=== PATIENT | male | born 1935 | race Caucasian/White ===

== ENCOUNTER 2018-06-02 13:21 | Emergency (ER) | payer OTHER ==
[~2018-06-02] VITALS: Ht 177.8 cm; Wt 72.6 kg
[2018-06-02 16:23] VITALS: BP 139/67
== END 2018-06-02 16:17 | disposition home or self-care (01) ==
LOC: ER 13:21
DX: M54.5 Low back pain (principal); W01.0XXA Fall on same level from slipping, tripping and stumbling without subsequent striking against object, initial encounter; Y93.89 Activity, other specified; Y92.89 Other specified places as the place of occurrence of the external cause; Y99.8 Other external cause status

== ENCOUNTER → 2018-06-18 | Outpatient (CLI) | payer OTHER ==
[2018-06-18 14:57] LABS: BASOPHILS 0.3 % (0.0-2.0); HEMOGLOBIN 14.2 gm/dL (14.0-18.0); LYMPHOCYTES 24.4 % (24.0-44.0); MCH 28.9 pg (26.0-34.0); MCV 87.6 fL (80.0-100.0); MONOCYTES 7.1 % (1.0-8.0); PLATELET COUNT 274 thou/uL (150-400); POLYS 63.2 % (36.0-66.0); RBC 4.91 mil/uL (4.50-6.00); RDW 15.4 % (10.5-14.5); WBC 6.4 thou/uL (4.0-11.0)
[2018-06-18 14:58] LABS: URINE BILIRUBIN NEGATIVE (Negative); URINE BLOOD NEGATIVE (Negative); URINE CLARITY CLEAR; URINE COLOR YELLOW; URINE GLUCOSE-RANDOM* 3+ (Negative); URINE KETONES TRACE (Negative); URINE LEUKOCYTES-REFLEX NEGATIVE (Negative); URINE NITRITE-REFLEX NEGATIVE (Negative); URINE PROTEIN (DIPSTICK) NEGATIVE (Negative); URINE SPECIFIC GRAVITY >= 1.030 (1.005-1.035); URINE UROBILINOGEN 0.2 E.U./dl (0.2-1.0)
[2018-06-18 15:07] LABS: ALBUMIN 3.7 g/dL (3.4-5.0); ANION GAP 11 mmol/L (7-16); BUN 20 mg/dL (7-18); CALCIUM 9.3 mg/dL (8.5-10.1); CHLORIDE 98 mmol/L (98-107); CHOLESTEROL 120 mg/dL (<200); CO2 28 mmol/L (21-32); CREATININE 1.1 mg/dL (0.7-1.3); GLUCOSE 271 mg/dL (74-106); HDL CHOLESTEROL 49 mg/dL (>40); LDL CHOLESTEROL 37 mg/dL (<100); MAGNESIUM 1.3 mg/dL (1.8-2.4); POTASSIUM 4.9 mmol/L (3.5-5.1); SGOT 19 U/L (15-37); SGPT 28 U/L (30-65); SODIUM 137 mmol/L (136-145); TC:HDL 2.4 Ratio (Not establshd); TOTAL BILIRUBIN 0.3 mg/dL (<0.1-1.0); TOTAL PROTEIN 7.1 g/dL (6.4-8.2); TRIGLYCERIDE 172 mg/dL (<150); VLDL 34 mg/dL (<40)
[2018-06-18 15:32] LABS: TSH 1.216 uIU/mL (0.358-3.740)
[2018-06-18 23:07] LABS: CREATININE (ALB/CR) 78.5 mg/dL (Not Estab.); MICROALB:CREAT 10.2 (0.0-30.0)
[2018-06-19 03:07] LABS: GLYCOHEMOGLOBIN (HGB A1C) 8.8 % (4.8-5.6)
== END ==
LOC: SEN 11:54
PROVIDERS: Nurse Practitioner Family
DX: I10 Essential (primary) hypertension (principal); E78.5 Hyperlipidemia, unspecified; E11.9 Type 2 diabetes mellitus without complications

== ENCOUNTER → 2018-11-19 | Outpatient (CLI) | payer OTHER ==
[~2018-11-19] VITALS: Ht 172.7 cm; Wt 80.7 kg
[~2018-11-19] MED LIST: ARICEPT 5 MG TAB5 MG PO; COQ-10100 MG PO; CRESTOR10 MG PO; DICLOFENAC SODI75 MG PO; LEVEMIR FL100 UNIT/2 SUBQ; MEMANTINE PO; METFORMIN HYDRO25 GM MC; NEURONTIN 300300 M1 PO; NORCO 10-325 T1 EACH PO; PEPCID20 MG PO; SERTRALINE HCL50 MG PO; TAMSULOSIN PO; TRAMADOL 50 MG50 MG PO; VICTOZA0.6 MG/0.1 SUBQ
[2018-11-19 11:46] VITALS: BP 147/68
--- NOTE | 2018-11-19 12:13 | NUR ---
Pain Clinic Assessment: 1. History of Osteoarthritis: History of Rheumatoid Arthritis: 2. Height: 5 ft. 8 in. 172.7 cm. Weight: 177.8 lb. oz. 80.650 kg. Patient's BMI: 27.0 3. Vital Signs: BP: 147/68 Pulse: 64 Resp: 20 Temp: 02 Sat: 98 ECG Mon: 4. Pain Intensity: 6 5. Fall Risk: Dizziness: N Needs help standing or walking: Y Fallen in the last 3 months: N Fall risk comments: 6. Patient on Blood Thinner: None 7. History of Hypertension: Y 8. Opioid Therapy greater than 6 weeks: Y Opiate Contract Signed: 9. Risk Assessment Tool Provided: 10. Functional Assessment Tool: 11. Recreational Drug Use: Never Drug Type: Tobacco Use: Never Smoker Tobacco Type: Amount or Packs/day: How Many Years: Alcohol Use: No Frequency: Quant:
--- NOTE | 2018-11-26 17:05 | HPC ---
[facility] [address] [place] [address] PAIN MANAGEMENT CONSULTATION Name: RED RANDHAWA Room #: REG [facility].#: [id number] Admission: 11/19/18 ������������������ Attend Phys: Caden Ignacio MD Discharge: ������������������ Date of : 36 Report #: [id number] THIS REPORT FOR: //name// CC: Beverly Gee [facility] physician/PCP Caden Ignacio DATE OF SERVICE: 11/19/2018 CHIEF COMPLAINT: Chronic right hip pain. FOLLOWUP HISTORY: The patient is an 83-year-old gentleman who injured his back while falling on icy night, hit his tailbone and the back of the trailer hitch. Continues to have pain, which today he describes as dull. Rates it as a 6/10. It increases with standing, walking, sitting, getting up from a sitting position, getting in and out of bed, moving from a chair to walking activity. He has found hydrocodone and tramadol, both helpful. He would like to continue with these medications. He does not feel that they are causing his sensorium to cloud. ALLERGIES: SULFA. CURRENT MEDICATIONS: PreserVision, CoQ10 50 mg, joint health tablet, chondroitin/glucosamine, calcium D3 400 units, Pepcid 20 mg b.i.d., vitamin B complex, Centrum Silver Men's, insulin Levemir 15 units subcutaneous at bedtime, Crestor 10 mg, metformin 100 mg, Glucophage, Namenda XR 21 mg, Aricept 5 mg, total of 10 mg daily, lisinopril 20 mg, Voltaren gel topical q.i.d. to the upper extremity, Zoloft 50 mg, Norvasc 5 mg, Neurontin 300 mg t.i.d., tramadol 37.5/325, hydrocodone 7.5/325, Victoza subcutaneous daily. PAIN CLINIC ASSESSMENT/PQRS: 1. The patient is not being treated for rheumatoid arthritis or osteoarthritis. He has had fusion in his low back area. 2. Height 5 feet 8 inches, weight 177 pounds, BMI is 27.0. 3. Vital signs: Blood pressure 147/68, pulse 64, respiratory rate 20, room air saturation is 98%. 4. Pain intensity 6/10. 5. Fall history: The patient has not fallen in the last 3 months. 6. Blood thinner. The patient is not on a blood thinning medication. 7. Hypertension. The patient is being treated for hypertension. 8. Opioids greater than 6 weeks. The patient receives medications through the pain clinic. 9. Risk assessment tool, low for opioid use. 10. Functional assessment tool. 11. Recreational drug use. The patient denies. 12. Tobacco: The patient never smoked. [address] [address] PAIN MANAGEMENT CONSULTATION Name: SYDNEERED Room #: REG CLNasreen Aden#: [id number] Admission: 11/19/18 ������������������ Attend Phys: Caden Ignacio MD Discharge: ������������������ Date of : 36 Report #: [id number] 13. Alcohol: The patient denies use of alcoholic beverages. PHYSICAL EXAMINATION: GENERAL: The patient is a well-developed, well-nourished white male. Appears his stated age. He accompanied by his . He is alert and oriented x 3. Affect is appropriate. Speech is fluent. corroborates his responses. HEENT: Normocephalic, atraumatic. Extraocular eye muscles intact. Sclerae nonicteric. Mucous membranes are moist. The patient has bilateral hearing aids in place. HEART: Regular rate. ABDOMEN: Nontender. Bowel sounds present. MUSCULOSKELETAL: The patient has pain and discomfort in the left hip area. Has pain in the posterior superior iliac spine area. He has pain that radiates down in the L4 dermatomal distribution. IMPRESSION: 1. Lumbar radiculopathy history at L4-L5. 2. Myofascial pain, right paraspinous muscles as well as the left paraspinous muscles. 3. History of coronary artery disease. 4. Dementia. 5. Hyperlipidemia. 6. Hypertension. 7. Type 2 diabetes. RECOMMENDATIONS: We discussed treatment options with the patient and his . At this point, they feel that the hydrocodone is helpful. He is able to gain benefit from this. He does walk with use of a walker. His also uses a rolling walker. He feels that these medications enable him to engage in activities he would not be able to without their use. He does not have any significant problems with constipation. He has taken the medications to help control the pain. He is not having any changes or alteration in his sensorium. We will continue with the patient's medications for pain control with hydrocodone 10/325 one p.o. b.i.d. He will also try tramadol, which he takes episodically as well to help curve his pain and discomfort. A script for these medications have been released. The patient will call us if he has any problems. His will call us if there are any concerns that she has. Questions were sought and answered. They will follow up as needed. ��������������������������������������������� <ELECTRONICALLY SIGNED> ���������������������������������������� By: Caden Ignacio MD ��������������������������������������������� 11/26/18 1705 [id number] [id number] Caden Ignacio MD /PMT
== END ==
LOC: PAIN 06:54
DX: M54.16 Radiculopathy, lumbar region (principal); E11.9 Type 2 diabetes mellitus without complications; I10 Essential (primary) hypertension; E78.5 Hyperlipidemia, unspecified; F03.90 Unspecified dementia, unspecified severity, without behavioral disturbance, psychotic disturbance, mood disturbance, and anxiety; I25.10 Atherosclerotic heart disease of native coronary artery without angina pectoris; M79.18 Myalgia, other site; Z79.4 Long term (current) use of insulin; Z79.899 Other long term (current) drug therapy; Z88.2 Allergy status to sulfonamides

== ENCOUNTER → 2018-12-31 | Outpatient (CLI) | payer OTHER ==
[~2018-12-31] VITALS: Ht 172.7 cm; Wt 81.2 kg
[~2018-12-31] MED LIST changes: +CELEBREX 200 M200 MG PO; +HYDROCODON-ACE1 EAC7 PO; +PRESERVISION A1 EAC2 PO; +VOLTAREN GEL 1100 G2 TOP
--- NOTE | ~2018-12-31 | HPC ---
[facility] [address] [email or web address] [address] PAIN MANAGEMENT CONSULTATION Name: RED RANDHAWA Room #: REG [facility].#: [id number] Admission: 12/31/18 ������������������ Attend Phys: Caden Ignacio MD Discharge: ������������������ Date of : 36 Report #: [id number] THIS REPORT FOR: //name// CC: Beverly Gee [facility] physician/PCP Caden Ignacio DATE OF SERVICE: 12/31/2018 CHIEF COMPLAINT: Pain in the low back area and pain in the right thumb. HISTORY: The patient has been having pain and discomfort in his hand for some time. He injured it many years ago. It has become more problematic at this point. Also, has pain and discomfort in the low back area after falling on ice and hitting his tailbone on the back of a trailer hitch and that pain continues to be problematic and he rates it as an 8/10 today collective with his thumb pain. He feels that the thumb pain is more problematic today. He feels that his opioid medications of tramadol and hydrocodone are beneficial. He feels that he is taking the medications as prescribed with the assistance of his . ALLERGIES: SULFA. CURRENT MEDICATIONS: PreserVision, CoQ10 50 mg, joint health tablet, chondroitin/glucosamine, calcium D3 400 units, Pepcid 20 mg b.i.d., vitamin B complex, Centrum Silver Men's, insulin Levemir 15 units subcutaneous at bedtime, Crestor 10 mg, metformin 100 mg, Glucophage, Namenda XR 21 mg, Aricept 5 mg total of 10 mg daily, lisinopril 20 mg, Voltaren gel topical q.i.d. to the upper extremity and to his right thumb, Zoloft 50 mg, Norvasc 5 mg, Neurontin 300 mg t.i.d., tramadol 37.5/325, hydrocodone 7.5 mg, Victoza subcutaneous daily. PAIN CLINIC ASSESSMENT/PQRS: 1. The patient is not being treated for rheumatoid arthritis or osteoarthritis. He has had fusion in his low back area in the past. 2. Height 5 feet 8 inches, weight 177 pounds, BMI is 27.2. 3. Vital signs: Blood pressure 119/54, pulse 76, respiratory rate 16, room air saturation is 96%. 4. Pain intensity 11/29. 5. Fall history: The patient has not fallen in the last 3 months. 6. Blood thinner. The patient is not on a blood thinning medication. 7. Hypertension. The patient is being treated for hypertension. 8. Opioids greater than 6 weeks. The [facility]. 9. Risk assessment tool, low for opioid use. 10. Functional assessment tool . 11. Recreational drug use. The patient denies. 12. Tobacco: [place] [address] PAIN MANAGEMENT CONSULTATION Name: RED RANDHAWA [id number] Admission: 12/31/18 ������������������ Attend Phys: Caden Ignacio MD Discharge: ������������������ Date of : 36 Report #: [id number] 13. Alcohol. The patient denies use of alcoholic beverages. PHYSICAL EXAMINATION: GENERAL: The patient is a well-developed, well-nourished white male. Appears his stated age. He is alert and oriented x 3. He is accompanied by his . His answers appear appropriate. Affect is appropriate. Speech is fluent. HEENT: Normocephalic, atraumatic. Extraocular eye muscles intact. The patient has bilateral hearing aids in place. HEART: Regular rate. ABDOMEN: Nontender. Bowel sounds present. MUSCULOSKELETAL: The patient has some pain and discomfort involving the left hip area. Also, has pain and discomfort in his right hand. Palpation in the area of his right hand does cause pain and discomfort in the area of the first metacarpal near the trapezius. Palpation in this area does reproduce the patient's pain and discomfort. IMPRESSION: 1. History of lumbar radiculopathy, L4-L5. 2. Myofascial pain, right paraspinous muscles. 3. History of coronary artery disease. 4. Dementia. 5. Hyperlipidemia. 6. Hypertension. 7. Type 2 diabetes. 8. Pain in the area of the carpometacarpal joint on the right hand. RECOMMENDATIONS: We discussed treatment options with the patient. At this juncture, we will continue with his current medications. He finds hydrocodone medication continues to be helpful, we will also continue with the use of tramadol as needed. The patient has pain involving his right hand. It involves the carpometacarpal area. Palpation in this area causes a reproduction of pain and discomfort, which is quite problematic in his hand. He feels that this pain is more problematic than the lumbar/back pain area today. We have discussed the options. The patient could consider undergoing an epidural injection or an injection into his thumb area. He feels that the area of the thumb is more problematic and has elected to undergo treatment in this area. We discussed the risks and benefits of the procedure, which could include infection, worsening of pain, infection in the hand, bleeding. The patient elects to proceed. PROCEDURE NOTE: The patient position. His right hand was sterilely prepped with a chlorhexidine solution and allowed to dry. The carpometacarpal area was palpated. The patient winced and did complain that this indeed was the area of his discomfort. Aspiration was negative. A 27-gauge needle was then used to inject 3 mg of Decadron. A total of 2 mL of 0.5% bupivacaine was injected. The patient tolerated the procedure well. There were no complications. He remained in the pain clinic for an appropriate amount of [facility] [address] [place] [address] PAIN MANAGEMENT CONSULTATION Name: RED RANDHAWA Room #: REG CL [facility].#: [id number] Admission: 12/31/18 ������������������ Attend Phys: Caden Ignacio MD Discharge: ������������������ Date of : 36 Report #: [id number] time. He will return in the future, at which time we will consider another epidural steroid injection. We would like to thank you for letting us participate in his care. We hope he continues to improve. ��������������������������������������������� ���������������������������������������� By: ��������������������������������������������� 1830 30 Caden Ignacio MD /CATHERINE
[2018-12-31 12:58] VITALS: BP 119/54
--- NOTE | 2018-12-31 13:05 | NUR ---
Pain Clinic Assessment: 1. History of Osteoarthritis: NONE History of Rheumatoid Arthritis: NONE 2. Height: 5 ft. 8 in. 172.7 cm. Weight: 179.0 lb. oz. 81.194 kg. Patient's BMI: 27.2 3. Vital Signs: BP: 119/54 Pulse: 76 Resp: 16 Temp: 02 Sat: 96 ECG Mon: 4. Pain Intensity: 8-TODAY 5. Fall Risk: Dizziness: N Needs help standing or walking: N Fallen in the last 3 months: N Fall risk comments: 6. Patient on Blood Thinner: None 7. History of Hypertension: Y 8. Opioid Therapy greater than 6 weeks: Y Opiate Contract Signed: 9. Risk Assessment Tool Provided: LOW 10. Functional Assessment Tool: 11. Recreational Drug Use: Never Drug Type: Tobacco Use: Never Smoker Tobacco Type: Amount or Packs/day: How Many Years: Alcohol Use: No Frequency: Quant:
== END | disposition home or self-care (01) ==
LOC: PAIN 06:59
DX: M79.644 Pain in right finger(s) (principal); M79.18 Myalgia, other site; I25.10 Atherosclerotic heart disease of native coronary artery without angina pectoris; F03.90 Unspecified dementia, unspecified severity, without behavioral disturbance, psychotic disturbance, mood disturbance, and anxiety; E78.5 Hyperlipidemia, unspecified; I10 Essential (primary) hypertension; E11.9 Type 2 diabetes mellitus without complications; Z88.2 Allergy status to sulfonamides

== ENCOUNTER → 2019-05-22 | Outpatient (CLI) | payer OTHER ==
[~2019-05-22] VITALS: Ht 172.7 cm; Wt 77.1 kg
[~2019-05-22] MED LIST changes: +HYDROCODON-ACE1 EAC5 PO
[2019-05-22 12:35] VITALS: BP 133/69
--- NOTE | 2019-05-22 12:39 | NUR ---
Pain Clinic Assessment: 1. History of Osteoarthritis: NONE History of Rheumatoid Arthritis: NONE 2. Height: 5 ft. 8 in. 172.7 cm. Weight: 170.0 lb. oz. 77.112 kg. Patient's BMI: 25.9 3. Vital Signs: BP: 133/69 Pulse: 95 Resp: 18 Temp: 02 Sat: 99 ECG Mon: 4. Pain Intensity: 4 5. Fall Risk: Dizziness: N Needs help standing or walking: N Fallen in the last 3 months: N Fall risk comments: 6. Patient on Blood Thinner: None 7. History of Hypertension: Y 8. Opioid Therapy greater than 6 weeks: Y Opiate Contract Signed: 9. Risk Assessment Tool Provided: LOW 10. Functional Assessment Tool: 11. Recreational Drug Use: Never Drug Type: Tobacco Use: Never Smoker Tobacco Type: Amount or Packs/day: How Many Years: Alcohol Use: No Frequency: Quant:
--- NOTE | 2019-05-29 08:40 | HPC ---
[facility] [address] [place] [address] PAIN MANAGEMENT CONSULTATION Name: RED RANDHAWA Room #: REG [facility]#: [id number] Admission: 05/22/19 Attend Phys: Caden Ignacio MD Discharge: Date of : 36 Report #: [id number] THIS REPORT FOR: cc: SHAGGY - [facility]uma family physician/PCP SHAGGY - [facility] family physician/PCP Caden Ignacio MD ~ THIS REPORT FOR: //name// CC: SHAGGY physician/PCP Caden Pearson MD DATE OF SERVICE: 05/22/2019 FOLLOWUP HISTORY: Low back pain with pain radiating down the top of the right leg to the knee. HISTORY: The patient is an 84-year-old gentleman who has been seen in the pain clinic because of chronic pain. He has undergone trigger points to the low back area because of myofascial pain. He has also undergone lumbar epidural steroid injections to help with his pain. He returns today indicating that his pain is a 4/10. He has pain in the low back area with radiation down to the top of his knee on the right side. Also, he has pain in his right thumb. He finds that his Celebrex medication is helpful. He is not having any problems with GI discomfort. His is present and helps provide his history. He notes that pain is exacerbated with walking, standing, getting in and out of bed. Moving in and out of chairs. He feels that the Voltaren gel can be helpful with pain and discomfort he is experiencing as well. ALLERGIES: SULFA. MEDICATIONS: PreserVision, CoQ10 50 mg, Joint Health tablet, chondroitin sulfate, calcium D3 400 units, Pepcid 20 mg b.i.d., vitamin B complex, Centrum Silver, insulin, Levemir subcutaneous at bedtime, Crestor 10 mg, metformin 100 mg, Glucophage, Namenda XR 21 mg, Aricept 5 mg, total of 10 mg daily; lisinopril 20 mg; Voltaren gel topical q.i.d. to the upper extremity; Zoloft 50 mg; Norvasc 5 mg; Neurontin 300 mg t.i.d.; tramadol 37.5/325; hydrocodone 7.5 mg/325 mg; Victoza subcutaneous. PAIN CLINIC ASSESSMENT AND PQRS: 1. The patient is not being treated for osteoarthritis. He has some arthritic changes in his back. He is status post back fusion with rods and screw placement. 2. Height 5 feet 8 inches, weight 170 pounds, BMI is 25. 3. Vital Signs: Blood pressure 133/69, pulse 95, respiratory rate 18, room air saturation 99%. [place] [address] PAIN MANAGEMENT CONSULTATION Name: RED RANDHAWA Room #: REG [facility].#: [id number] Admission: 05/22/19 Attend Phys: Caden Ignacio MD Discharge: Date of : 36 Report #: [id number] 4. Pain intensity 4/10 on the right hip. 5. Fall history: The patient has not fallen in the last 3 months. 6. Blood thinner. The patient is not on a blood thinning medication. 7. Hypertension. The patient is being treated for hypertension. 8. Opioids greater than 6 weeks. 9. The patient has received [facility] the pain clinic. 10. Risk assessment tool, low for opioid use. 11. Functional assessment tool . 12. Recreational drug use: The patient denies. 13. Tobacco: The patient has never smoked. 14. Alcohol. The patient denies use of alcoholic beverages. PHYSICAL EXAMINATION: GENERAL: The patient is a well-developed, well-nourished white male. Appears his stated age of 84 years. He is alert and oriented. He appears to be oriented x 3. His assists in providing his history. Speech is fluent. HEENT: Normocephalic, atraumatic. Extraocular eye muscles intact. Sclerae nonicteric. Mucous membranes are moist. NECK: Without adenopathy or JVD. EXTREMITIES: Upper extremity muscle strength 4+/5 on the left side as well as the right side. HEART: Regular rate. ABDOMEN: Nontender. Bowel sounds present. MUSCULOSKELETAL: The patient has pain and discomfort in the lower portion of his back with pain that radiates down into the low back area and involves his left hip. He has pain down into the area of his knee and thigh on the right side. IMPRESSION: 1. Lumbar radiculopathy with an L4-L5 dermatomal distribution, status post fusion with rods and screws at this level. 2. Myofascial pain, right paraspinous muscle soreness with left paraspinous muscles spasms. 3. History of coronary artery disease. 4. Status post dementia. 5. Hyperlipidemia. 6. Hypertension. 7. Type 2 diabetes. RECOMMENDATIONS: We discussed treatment options with the patient and his . At this juncture, they feel that things are going reasonably well. His pain is listed as 4/10. He does have some pain on the right side. He states that the pain sometimes goes down to the level of the knee. Overall, things are tolerable. He is not having any problems with confusion with his medications. He does not have any problems with his balance or equilibrium because of this medication. We will continue with his medications of hydrocodone [address] [facility] [place] [address] PAIN MANAGEMENT CONSULTATION Name: RED RANDHAWA Room #: REG [facility].#: [id number] Admission: 05/22/19 Attend Phys: Caden Ignacio MD Discharge: Date of : 36 Report #: [id number] p.o. b.i.d. He will also continue with Celebrex. He finds that this medication has been helpful. He will monitor his GI tract. Should he note some pain or discomfort in his stomach, he will then stop taking the Celebrex medication. He will also use tramadol p.r.n. 50 mg t.i.d. as needed. We would like to thank you for letting us participate in his care. We have discussed the problems with opioid medication with the patient and his . They can become less effective as time goes on due to tolerance. Scripts for his medications have been rewritten. <ELECTRONICALLY SIGNED> By: Caden Ignacio MD 05/29/19 0840 [id number] Caden Ignacio MD /nt
== END ==
LOC: PAIN 06:49
DX: M54.16 Radiculopathy, lumbar region (principal); I25.10 Atherosclerotic heart disease of native coronary artery without angina pectoris; E78.5 Hyperlipidemia, unspecified; I10 Essential (primary) hypertension; E11.9 Type 2 diabetes mellitus without complications; F03.90 Unspecified dementia, unspecified severity, without behavioral disturbance, psychotic disturbance, mood disturbance, and anxiety; Z79.899 Other long term (current) drug therapy